=== PATIENT | female | born 1940 | race African-American/Black ===

== ENCOUNTER → 2020-12-14 | Outpatient (CLI) | payer MEDICARE, OTHER ==
[2014-07-08 11:55] VITALS: BP 123/75
[~2020-12-14] MED LIST: ASPI-482 PO; CELE200C PO; CEPH250C PO; FERR325T14 PO; FERR325T58 PO; LOSA1TAB19 PO; OXYC1TAB15 PO; SIMV80TA17 PO; WARF5TAB2 PO
--- NOTE | 2020-12-14 10:28 | KCIC ---
INDICATION: Reason: COGNITIVE IMPAIRMENT / Spl. Instructions: / History: Increased forgetfulness, me andrea loss. COMPARISON: None. TECHNIQUE: Axial CT images obtained through the head without intravenous contrast. One or more of the following individualized dose reduction techniques were utilized for this examinat ion: 1. Automated exposure control; 2. Adjustment of the mA and/or kV according to patient size; 3 . Use of iterative reconstruction technique. FINDINGS: No intracranial hemorrhage. No significant midline shift. Ventricles and sulci are globally prominent. Scattered foci of low attenuation within the white matter. IMPRESSION: * No acute intracranial hemorrhage. * Scattered regions of low attenuation within the white matter. Non-specific in nature but a common finding and frequently secondary to small vessel ischemic disease. If there is high concern for acut e causes clinically MRI could better assess whether this is all chronic in nature to ensure there is no superimposed acute cause. Electronically signed by: Jean Choudhury MD (12/14/2020 10:25 AM) [id number]
== END ==
LOC: KCIC CT 09:13
PROVIDERS: ATTEND Family Medicine
DX: I67.82 Cerebral ischemia (principal); G31.84 Mild cognitive impairment of uncertain or unknown etiology
CPT/HCPCS: 70450

== ENCOUNTER → 2020-12-30 | Outpatient (CLI) | payer MEDICARE ==
[2014-07-08 11:55] VITALS: BP 123/75
== END ==
LOC: LAB 12:44
PROVIDERS: ATTEND Nurse Practitioner Family
DX: R41.89 Other symptoms and signs involving cognitive functions and awareness (principal); R53.1 Weakness
CPT/HCPCS: 36415; 82607; 82746; 84443